=== PATIENT | male | born 1960 | race Caucasian/White ===

== ENCOUNTER 2023-02-27 09:52 | Emergency (ER) | payer OTHER ==
[2023-02-27 10:16] VITALS: BMI 33.2
[2023-02-27 12:46] LABS: BASO % 0.4 % (0-2.0); HEMATOCRIT 41.3 % (35.4-49); HEMOGLOBIN 13.3 GM/dL (11.7-16.9); LYMPH % 24.8 % (8-40); MCH 27.7 pg (25.7-33.7); MCHC 32.3 g/dl (32.0-35.9); MEAN CELL VOLUME 85.8 fl (80-96); MEAN PLT VOLUME 9.7 fl (7.5-11.1); MONO % 17.6 % (3.8-10.2); NEUT % 56.2 % (42.8-82.8); PLATELET COUNT 223 10^3/uL (134-434); RBC 4.81 M/mm3 (4.00-5.60); RDW 14.5 % (11.9-15.9); WHITE BLOOD COUNT 8.2 K/mm3 (4.0-10.0)
[2023-02-27 13:05] LABS: POTASSIUM 5.1 mmol/L (3.5-5.1)
[2023-02-27 13:06] LABS: CALCIUM 8.7 mg/dL (8.5-10.1)
[2023-02-27 13:07] LABS: ALBUMIN 3.4 g/dl (3.4-5.0); BLOOD UREA NITROGEN 12.8 mg/dL (7-18)
[2023-02-27 13:10] LABS: CREATININE 0.9 mg/dL (0.55-1.3)
[2023-02-27 13:12] LABS: BILIRUBIN,TOTAL 0.5 mg/dL (0.2-1); TOT PROT 7.2 g/dl (6.4-8.2)
[2023-02-27 13:15] LABS: N-TERMINAL BNP 377.4 pg/ml (5-125)
[2023-02-27] MEDS ORDERED: FUROSEMIDE 40 MG/4 ML INJECTABLE VIAL IVPUSH ONE (13:25)
[2023-02-27] MEDS ORDERED: FUROSEMIDE 40 MG/4 ML INJECTABLE VIAL ONE (13:30)
[2023-02-27 14:37] VITALS: BP 130/93; PULSE 135; RESP 17; TEMP 98.6
== END 2023-02-27 14:52 | disposition home or self-care (01) ==
LOC: JER 09:52
PROC: 3E033NZ Introduction of Analgesics, Hypnotics, Sedatives into Peripheral Vein, Percutaneous Approach (ICD-10-PCS; principal; 2023-02-27)
DX: R53.1 Weakness (principal); R06.02 Shortness of breath; J10.1 Influenza due to other identified influenza virus with other respiratory manifestations; Z20.822 Contact with and (suspected) exposure to COVID-19
CPT/HCPCS: 0241U-QW; 36415; 71046-TC-FY; 80053; 83880; 84484; 85025; 93005; 93010; 99285-25